=== PATIENT | female | born 1945 | race Hispanic/Latino ===

== ENCOUNTER 2024-07-26 06:42 | Day surgery (SDC) | payer OTHER ==
[~2024-07-26] VITALS: Ht 162.6 cm; Wt 66.7 kg
[2024-07-26] VITALS (10 sets, daily range): BP systolic 105–132; BP diastolic 59–73; PULSE 82–90; RESP 14–18; TEMP 97.8–98.4
[2024-07-26] MEDS ORDERED: PANT40TA54 PO (07:45)
[2024-07-26] MEDS ORDERED: LIPA1CAP18 PO (07:45)
[2024-07-26] MEDS ORDERED: FLUOXETINE PO (07:45)
[2024-07-26] MEDS ORDERED: LOPE2 PO (07:45)
[2024-07-26] MEDS ORDERED: LEVO75CA5 PO (07:45)
[2024-07-26] MEDS ORDERED: CETI10TA87 PO (07:45)
[2024-07-26] MEDS ORDERED: HYDR200T82 PO (07:45)
[2024-07-26] MEDS: 0.9%NACL 1000ML 1,000 ML IV ONE (07:59)
[2024-07-26] MEDS ORDERED: proPOFol 10 MG/ML 20ML VIAL IV ONE ×2 (08:29)
--- NOTE | 2024-07-26 09:52 | NUR ---
Full and complete discharge instructions given to Patient and Family both verbally and in writing. Explained GI procedure precautions and follow up. All questions answered. PIV removed with catheter tip intact. Home with Family W/C to POV.
== END 2024-07-26 09:45 | disposition home or self-care (01) ==
LOC: DAH 06:42 → ENDO 06:42
PROVIDERS: ATTEND Internal Medicine Gastroenterology
DX: R93.3 Abnormal findings on diagnostic imaging of other parts of digestive tract (principal); R19.7 Diarrhea, unspecified; E78.5 Hyperlipidemia, unspecified; F32.A Depression, unspecified; E66.01 Morbid (severe) obesity due to excess calories; E03.9 Hypothyroidism, unspecified; Z98.890 Other specified postprocedural states; Z98.84 Bariatric surgery status; Z79.899 Other long term (current) drug therapy
CPT/HCPCS: 43259; J7030; J2704; A4620; A4215 ×2; A4223; A4222; A4221; A4663; A4606; 43237; J3490